=== PATIENT | female | born 1960 | race Caucasian/White ===

== ENCOUNTER 2017-10-08 07:47 | Emergency (ER) | payer OTHER, SELFPAY ==
--- NOTE | 2017-10-08 07:55 | ED_ITS ---
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 Patient does wear corrective glasses. No contacts. No prior eye surgery such as Lasix. States she was sitting at a computer. Had been there for approximately 10 min. States she suddenly got an onset of white light flashes in her right eye. She describes them an a ring. Sometime after the start of the symptoms she did develop a headache. Since she was at work she had 1 of her coworkers take her blood pressure and had a systolic blood pressure of greater than 200. Patient does not have a history of high blood pressure. Because of the symptoms in the high blood pressure she came to the emergency department for evaluation. She denies any trauma. At the time of my evaluation patient did report a improvement in her symptoms. Related Data Home Medications Medication Instructions Recorded Confirmed calcium carbonate 1 tab PO #0 tab 01/05/16 Allergies Allergy/AdvReac Type Severity Reaction Status Date / Time No Known Drug Allergies Allergy Verified 10/08/17 08:08 Review of Systems Constitutional Denies chills, Denies fatigue, Denies fever(s), Reports headache(s), Denies lethargy and Denies night sweats Eyes Reports blurry vision ( Right eye), Reports change in vision ( right eye), Denies diplopia, Denies eye discharge, Denies irritation, Denies itchy eyes, Denies loss of peripheral vision, Denies loss of vision, Denies eye pain, Reports seeing flashes ( right eye), Denies photophobia, Denies spots in vision and Denies tunnel vision Comments: patient without left eye complaints ENT Ears, Nose, Mouth, and Throat: Denies vertigo, Denies dizziness, Reports headache(s), Denies nose pain, Denies tinnitus, Denies sinus pain, Denies sinus pressure and Denies sore throat Cardiovascular Denies chest pain, Denies syncope, Denies palpitations and Denies dyspnea Respiratory Denies cough and Denies dyspnea Gastrointestinal Gastrointestinal: Denies vomiting Musculoskeletal Denies numbness Integumentary/Breasts Denies lesions, Denies rash and Denies wounds Neurologic Denies abnormal speech, Denies confusion, Denies vertigo, Denies dizziness, Denies syncope, Reports headache(s), Denies focal weakness, Denies loss of vision, Denies numbness, Denies radicular pain, Denies sensory deficit and Denies paresthesias Psychiatric Denies confusion Endocrine Denies fatigue and Denies palpitations Hematologic/Lymphatic Denies easy bleeding and Denies easy bruising Allergic/Immunologic Denies itchy eyes PFS Surgical History Status post delivery Status post discectomy Family History Father Age: 89 Macular degeneration Hypertension Exam Initial Vital Signs Initial Vital Signs: Vital Signs Temperature 97.6 F 10/08/17 07:57 Pulse Rate 88 10/08/17 07:57 Respiratory Rate 13 10/08/17 07:57 Blood Pressure 168/98 H 10/08/17 07:57 Pulse Oximetry 100 10/08/17 07:57 Const General: cooperative, healthy appearing, comfortable, well developed, well groomed and No acute distress Nutritional Appearance: average body habitus Orientation: alert, awake and oriented x3 HENMT Head: normal to inspection, normocephalic and atraumatic Ears: hearing grossly normal bilaterally and TM's normal bilaterally Nose: external nose normal Face and sinus: normal facial exam, sinuses nontender and face symmetric Mouth: oral mucosae normal and moist mucous membranes Eyes General: appearance normal, both eyes and all related structures Alignment and Position: alignment normal Periorbital: periorbital findings normal Eyelids: eyelids normal Conjunctivae: conjunctivae normal Sclera: sclerae normal Pupils: PERRL EOM: EOM intact bilaterally Direct ophthalmoscopy: normal light reflex, no papilledema and increased light reflex Other: interocular pressure right eye 18 interocular pressure left eye 18 Neck Neck: normal visual inspection Lymphatic: No lymphadenopathy Resp Effort & Inspection: normal respiratory effort and able to speak in complete sentences Skin Lesions: no lesions Rashes: no rashes Neuro General: alert, awake and oriented x3 Cranial Nerves: CN's II-XI intact bilaterally, PERRL and EOM intact bilaterally Cognition: normal cognition Speech: speech normal Gait: normal gait Sensory Exam: no sensory deficits noted Extrem General: normal to inspection and capillary refill normal Course Orders Ordered: ED Orders 10/08/17 08:11 Urine Microscopic Stat Tetracaine HCl (Pontocaine 0.5% Ophth) 1 drops EYE-RIGHT Q5MIN PRN PRN Reason: Pain, Mild (1-3) Vital Signs - 8 hr 10/08/17 07:57 10/08/17 08:00 Temperature 97.6 F Pulse Rate 88 91 H Respiratory Rate 13 22 Blood Pressure 168/98 H Blood Pressure [Left Wrist] 166/97 H Pulse Oximetry 100 100 MDM - Eye Problem MDM Narrative Medical decision making narrative: patient's blood pressure has been improving here in the emergency department however still has a systolic in the 150s. She does report improvement of her symptoms except for a blurry vision in right eye. visual QT was noted. Interocular pressures unremarkable. Nondilated direct ophthalmoscope with the panoptic shows normal right side optic disc. Bedside ultrasound is concerning for a vitreous detachment. Unable to attach photos for this. I discussed the case with Dr. Walter at [facility] which is where the patient receives her eye care. Dr. Walter agrees with her history and physical exam which I described to him as most likely a vitreous detachment. Headaches and high blood pressure normally not associated with vitreous detachment. Her high blood pressure could be the result of her headache and other extremity was circumstances. Her physical exam is not consistent with a CVA or TIA. She has a normal neurologic exam. We did discuss this with the patient. Dr. Walter office will call the patient for a follow-up the next couple days. Patient was informed of return precautions. She expressed understanding and agreement with plan. Discharge Plan Departure Patient Disposition: Home, Self-Care Clinical Impression: Blurred vision, right eye, Hypertension, Posterior vitreous detachment of right eye, Headache Instructions: DI for Vitreous Detachment Activity Restrictions/Additional Instructions: you should be receiving a call from the [facility] office and Dr. Walter in the next day to schedule a follow-up. If your symptoms worsen, change or if you developed new symptoms you can return to the emergency department for further evaluation. I would continue to monitor your blood pressure like we discussed. If it continues to be elevated you do need to be re -evaluated by her primary doctor. Prescriptions: No Action calcium carbonate 500 MG tablet 1 tab PO Qty: 0 RF: 0
[2017-10-08 07:57] VITALS: BP 168/98; PULSE 88; RESP 13; TEMP 36.4; O2SAT 100
[2017-10-08 08:00] VITALS: BP 166/97; PULSE 91; RESP 22; O2SAT 100
== END 2017-10-08 09:12 | disposition home or self-care (01) ==
LOC: ED 09:10
PROVIDERS: Emergency Provider Emergency Medicine; PCP Specialist
DX: H43.811 Vitreous degeneration, right eye (principal); H53.8 Other visual disturbances; I10 Essential (primary) hypertension; R51 Headache
CPT/HCPCS: 81003; 99283

== ENCOUNTER 2018-01-05 11:16 | Emergency (ER) | payer OTHER, SELFPAY ==
[2018-01-05] VITALS (9 sets, daily range): BP systolic 124–168; BP diastolic 69–93; PULSE 64–91; RESP 13–20; TEMP 36.5; O2SAT 98–100; BMI 24.0
--- NOTE | 2018-01-05 11:21 | DI.RAD.S_ITS ---
PROCEDURE: XR CHEST 1V INDICATIONS: chest pain TECHNIQUE: One view of the chest was acquired. COMPARISON: None. FINDINGS: Surgical changes and devices: Cervical spine fixation hardware Lungs and pleura: No pleural effusions or pneumothorax. Lungs are clear. Mediastinum: Mediastinal contours appear normal. Heart size is normal. Bones and chest wall: Left lateral curvature of the spine No suspicious bony lesions. Overlying soft tissues appear unremarkable. IMPRESSION: No acute disease. Dictated by: Mike Lyn M.D. on 01/05/2018 at 11:59 Approved by: Mike Lyn M.D. on 01/05/2018 at 12:00
[2018-01-05] MEDS: NITROGLYCERIN 0.4 MG SL TAB SL ×3 (11:37→11:55)
--- NOTE | 2018-01-05 11:39 | ED.CHESTPAIN ---
HPI - Chest Pain General Chief Complaint: Chest Pain Stated Complaint: CHEST PAIN Time Seen by Provider: 01/05/18 11:30 Source: patient Mode of arrival: ambulatory Limitations: no limitations History of Present Illness HPI narrative: Patient is a 57-year-old female presents with chest discomfort. She says she has been having some discomfort off and on for about a week all which is all worse with exertion. Over the last day or so a is significantly worse radiating up to her right jaw. She thought it was just heartburn. She has been taking Tums no relief. No prior history or of coronary artery disease hypertension or hyperlipidemia. She does smoke a half pack daily. No known family history. She does have a history of PVCs which she does currently have on the monitor she denies dizziness or heart palpitations. She also has a history of a bundle-branch block. MD complaint: chest pain Related Data Home Medications Medication Instructions Recorded Confirmed calcium carbonate 1 tab PO #0 tab 01/05/16 Allergies Allergy/AdvReac Type Severity Reaction Status Date / Time No Known Drug Allergies Allergy Verified 10/08/17 08:08 Review of Systems Review of Systems GENERAL: Denies chills, fatigue, malaise, fever, sweats, travel HEENT: Denies sinus pain, ear pain, sore throat, difficulty swallowing, neck pain RESPIRATORY: Denies dyspnea, cough, wheezing, hemoptysis, sputum. CARDIOVASCULAR: See HPI GASTROINTESTINAL: Denies nausea, vomiting, abdominal pain, diarrhea, constipation, melena. : Denies dysuria, frequency, incontinence, hematuria, urinary retention, flank pain. MUSCULOSKELETAL: Denies weakness, joint pain, or bony pain SKIN: No rash, no erythema, no pruritus NEUROLOGIC: Denies weakness, dizziness, headache, numbness, change in speech, confusion PSYCHIATRIC: No concerning psychosocial issues. 12 point review of systems is negative except for those stated above and HPI ON LICENSE OF [facility] Social History Smoking Status: Current every day smoker Exam Initial Vital Signs Initial Vital Signs: Vital Signs Temperature 97.7 F 01/05/18 11:22 Pulse Rate 91 H 01/05/18 11:22 Respiratory Rate 20 01/05/18 11:22 Blood Pressure 157/69 H 01/05/18 11:22 Pulse Oximetry 100 01/05/18 11:22 GENERAL: Well-appearing, well-nourished and in no acute distress. HEENT: Head atraumatic,EOMI, pupils reactive, face symmetric, CARDIOVASCULAR: Regular rate and rhythm without murmurs, rubs or gallops. RESPIRATORY: Breath sounds equal bilaterally, no wheezes rales or rhonchi. ABDOMEN: Soft, nontender. Normoactive bowel sounds all 4 quadrants. No guarding or rebound. EXTREMITIES: Normal range of motion, no clubbing or edema. Neurovascularly intact NEUROLOGICAL: Alert and oriented x4.Normal gait and speech. Cranial nerves II through XII grossly intact. SKIN: Warm, dry, no laceration, no petechiae, no rashes or lesions. Scores HEART Score Heart Score history: Highly Suspicious Heart Score EKG: Normal Heart Score Age: 45-64 years old Heart Score risk factors: 1-2 risk factors Heart Score troponin: < or = to normal limit Heart Score Total: 4 Course Orders Ordered: ED Orders 01/05/18 11:21 XR chest 1V Stat EKG-12 Lead Stat 01/05/18 11:35 Complete Blood Count AUTO DIFF Stat Comprehensive Metabolic Panel Stat Lipase Stat Partial Thromboplastin Time Stat Prothrombin Time INR Stat Troponin & CK Cardiac Panel Stat 01/05/18 11:37 EKG-12 Lead Stat Discontinued Medications Aspirin (Aspirin Chew) 243 mg PO NOW ONE Stop: 01/05/18 11:38 Last Admin: 01/05/18 11:43 Dose: 243 mg Nitroglycerin (Nitrostat) 0.4 mg SL NOW ONE Stop: 01/05/18 11:38 Last Admin: 01/05/18 11:37 Dose: 0.4 mg Nitroglycerin (Nitrostat) 0.4 mg SL NOW ONE Stop: 01/05/18 11:48 Last Admin: 01/05/18 11:50 Dose: 0.4 mg Nitroglycerin (Nitrostat) 0.4 mg SL NOW ONE Stop: 01/05/18 11:55 Last Admin: 01/05/18 11:55 Dose: 0.4 mg Pantoprazole Sodium (Protonix) 40 mg IV NOW ONE Stop: 01/05/18 11:38 Last Admin: 01/05/18 11:53 Dose: 40 mg Vital Signs - 8 hr 01/05/18 11:22 01/05/18 11:37 09/29/18 11:45 Temperature 97.7 F Pulse Rate 91 H 78 79 Respiratory Rate 20 Blood Pressure 157/69 H 168/82 H 147/93 H Blood Pressure [Left Arm] Pulse Oximetry 100 01/05/18 11:50 01/05/18 11:55 01/05/18 12:00 Temperature Pulse Rate 78 82 77 Respiratory Rate 13 Blood Pressure 136/82 138/88 Blood Pressure [Left Arm] 134/88 Pulse Oximetry 99 01/05/18 12:30 01/05/18 13:30 Temperature Pulse Rate 77 64 Respiratory Rate 18 19 Blood Pressure Blood Pressure [Left Arm] 124/72 133/71 Pulse Oximetry 100 99 MDM - Chest Pain Lab Data Attestation: I reviewed the patient's lab results. Result diagrams: 01/05/18 11:35 01/05/18 11:35 Lab Results 01/05/18 01/05/18 01/05/18 Range/Units 11:35 11:35 11:35 WBC 8.2 (4.5-11.0) X10^3/uL RBC 4.32 (4.0-5.2) X10^6/uL Hgb 13.3 (12.0-16.0) g/dL Hct 39.0 (36-46) % MCV 90.3 (80-100) fL MCH 30.7 (26-34) PG MCHC 34.1 (30-36) % RDW 13.5 (11.6-14.8) % Plt Count 243 (150-400) X10^3/uL Neut % (Auto) 62.6 (50-75) % Lymph % (Auto) 27.6 (25-40) % [place] % (Auto) 7.8 (3-14) % Eos % (Auto) 1.4 L (2-4) % Baso % (Auto) 0.6 (0-2) % Neut # (Auto) 5100 (8768-7606) /uL PT 10.8 (10.1-12.7) SECONDS INR 1.0 (0.9-1.3) APTT 31 (26.4-36.2) SECONDS Sodium 145 (137-145) mmol/L Potassium 3.9 (3.4-5.1) mmol/L Chloride 104 (98-107) mmol/L Carbon Dioxide 31 (22-32) mmol/L BUN 19 H (7-17) mg/dL Creatinine 0.80 (0.52-1.04) mg/dL Estimated GFR > 60.0 (>60) mL/min BUN/Creatinine Ratio 23.8 H (6-22) Glucose 105 H (70-100) mg/dL Calcium 9.9 (8.4-10.2) mg/dL Total Bilirubin 0.5 (0.2-1.3) mg/dL AST 29 (14-36) IU/L ALT 32 (9-52) IU/L Alkaline Phosphatase 73 (38-126) U/L Total Creatine Kinase 50 (30-135) U/L CK-MB (CK-2) TNP CK-MB (CK-2) Rel Index TNP Troponin I < 0.012 (0.01-0.034) ng/mL Total Protein 7.3 (6.3-8.2) g/dL Albumin 4.4 (3.5-5.0) g/dL Globulin 2.9 (1.7-4.1) g/dL Albumin/Globulin Ratio 1.5 (1.0-2.8) Lipase 256 (23-300) U/L Imaging Data Chest x-ray: Radiologist's impression: PROCEDURE: XR CHEST 1V INDICATIONS: chest pain TECHNIQUE: One view of the chest was acquired. COMPARISON: None. FINDINGS: Surgical changes and devices: Cervical spine fixation hardware Lungs and pleura: No pleural effusions or pneumothorax. Lungs are clear. Mediastinum: Mediastinal contours appear normal. Heart size is normal. Bones and chest wall: Left lateral curvature of the spine No suspicious bony lesions. Overlying soft tissues appear unremarkable. IMPRESSION: No acute disease. Dictated by: Mike Lyn M.D. on 01/05/2018 at 11:59 ECG Data Attestation: I personally reviewed and interpreted this ECG as follows: Prior ECG tracings: not available for review Interpretation: EKG 1. Sinus some left bundle-branch block no ST changes no prior EKG 2. Sinus rhythm a left bundle-branch block rate 87 PVCs similar to prior EKG 3. Sinus rhythm is rate 72 similar to previous her MDM Narrative Medical decision making narrative: Patient symptoms are actually highly suspicious. She had complete resolution after nitro she is not relate some much pressure she was having on her chest. EKGs do show a left bundle branch block and PVCs both of which she has history 4. Troponin is negative. Unfortunately [facility] does not have stress testing available for couple of weeks. Patient is a [place] patient. Dr Rene, has been updated patient's symptoms and test results agrees with transfer to [place]. Discharge Plan Departure Patient Disposition: [facility] Clinical Impression: Chest pain Prescriptions: No Action calcium carbonate 500 MG tablet 1 tab PO Qty: 0 RF: 0
[2018-01-05] MEDS: ASPIRIN 81 MG TAB 243 MG PO (11:43)
[2018-01-05 11:47] LABS: Add Manual Diff / Slide Review NO; Basophils Percent Auto 0.6 % (0-2); Eosinophils Percent Auto 1.4 % (2-4); Hemoglobin 13.3 g/dL (12.0-16.0); Lymphocytes Percent Auto 27.6 % (25-40); Mean Corpuscular HGB Conc 34.1 % (30-36); Mean Corpuscular Hemoglobin 30.7 PG (26-34); Mean Corpuscular Volume 90.3 fL (80-100); Monocytes Percent Auto 7.8 % (3-14); Neutrophils Absolute Auto 5100 /uL (3000-5900); Neutrophils Percent Auto 62.6 % (50-75); Platelet Count 243 X10^3/uL (150-400); Red Blood Cell Count 4.32 X10^6/uL (4.0-5.2); Red Cell Distribution Width 13.5 % (11.6-14.8); White Blood Cell Count 8.2 X10^3/uL (4.5-11.0)
[2018-01-05] MEDS: PANTOPRAZOLE 40 MG VIAL IV (11:53)
[2018-01-05 11:55] LABS: Prothrombin Time 10.8 SECONDS (10.1-12.7)
[2018-01-05 11:58] LABS: Alanine Aminotransferase 32 IU/L (9-52); Albumin 4.4 g/dL (3.5-5.0); Albumin Globulin Ratio 1.5 (1.0-2.8); Alkaline Phosphatase 73 U/L (38-126); Aspartate Aminotransferase 29 IU/L (14-36); BUN Creatinine Ratio 23.8 (6-22); Bilirubin Total 0.5 mg/dL (0.2-1.3); Blood Urea Nitrogen 19 mg/dL (7-17); Calcium 9.9 mg/dL (8.4-10.2); Carbon Dioxide 31 mmol/L (22-32); Chloride 104 mmol/L (98-107); Creatine Kinase 50 U/L (30-135); Estimated Glomerular Filt Rate > 60.0 mL/min (>60); Globulin 2.9 g/dL (1.7-4.1); Glucose 105 mg/dL (70-100); HEMOLYSIS < 15 (0-50); Lipase 256 U/L (23-300); PTT Partial Thromboplastin Tim 31 SECONDS (26.4-36.2); Potassium 3.9 mmol/L (3.4-5.1); Sodium 145 mmol/L (137-145); Total Protein 7.3 g/dL (6.3-8.2)
[2018-01-05 12:10] LABS: Troponin I < 0.012 ng/mL (0.01-0.034)
== END 2018-01-05 14:39 | disposition short-term general hospital (02) ==
PROVIDERS: Emergency Provider Emergency Medicine; PCP Specialist
DX: R07.9 Chest pain, unspecified (principal)
CPT/HCPCS: 36591; 71045; 80053; 82550; 83690; 84484; 85025; 85610; 85730; 93005; 93041; 96374; 99283; 99285; C9113

== ENCOUNTER → 2018-02-06 15:00 | Outpatient (CLI) | payer OTHER, SELFPAY | PROVIDERS: PCP Specialist | DX: Z23 Encounter for immunization (principal) | CPT/HCPCS: 90471; 90686 ==

== ENCOUNTER → 2018-05-07 14:45 | Outpatient (CLI) | payer OTHER, SELFPAY ==
--- NOTE | 2018-05-07 | DI.ECHO.S_ITS ---
[facility] +---------+ Hospital +---------+ : : [address] : : : : [id number] : : : : Phone: [phone] Echocardiogram Report + + :Name: JESSA IRAHETA Study Date: 05/07/2018 Height: 64 in : :[employer] Exam Location: IS Weight: 150 lb : : Gender: Female BSA: 1.7 m2 : :: 1960 Age: 57 yrs BP: 132/80 mmHg: :Reason For Study: Hypertension : :Ordering Physician: Dr. Marie : :Jake Performed By: Danielle Bates : :Referring: RUSS MARTINEZ : + + Interpretation Summary The left ventricle is normal in size. Left ventricular systolic function is borderline reduced. Left ventricular ejection fraction is estimated to be 50%. Left ventricular wall motion is normal. Diastolic parameters suggest a relaxation abnormality of the left ventricle, consistent with probable normal filling pressures. The right ventricle is normal in size and function. The right ventricular systolic pressure is estimated to be at least 20 mmHg based on an estimated right atrial pressure of 3 mm Hg. Both atria are normal in size. There is mild mitral regurgitation. There is no significant valvular heart disease. The aortic root is normal size. Procedure: A two-dimensional transthoracic echocardiogram with color flow and Doppler was performed. The study quality was technically adequate. There is no prior echocardiogram noted for this patient. The patient was in normal sinus rhythm during the exam. The patient had occasional PVCs during the exam. Left Ventricle: The left ventricle is normal in size. There is normal left ventricular wall thickness. Left ventricular systolic function is borderline reduced. Left ventricular ejection fraction is estimated to be 50%. Left ventricular wall motion is normal. Diastolic parameters suggest a relaxation abnormality of the left ventricle, consistent with probable normal filling pressures. Right Ventricle: The right ventricle is normal in size and function. Atria: Both atria are normal in size. Mitral Valve: The mitral valve leaflets appear mildly thickened, but open well. There is mild mitral regurgitation. The mitral regurgitant jet is eccentrically directed. Aortic Valve: The aortic valve is trileaflet. The aortic valve opens well. No aortic regurgitation is present. Tricuspid Valve: The tricuspid valve is normal in structure and function. There is trace tricuspid regurgitation. The right ventricular systolic pressure is estimated to be at least 20 mmHg based on an estimated right atrial pressure of 3 mm Hg. Pulmonic Valve: The pulmonic valve is normal in structure and function. There is a trace or physiologic amount of pulmonic regurgitation. There is no significant valvular heart disease. Great Vessels: The aortic root is normal size. The ascending aorta is normal in size. The IVC is of normal diameter and collapses greater than 50% with a sniff. This suggests a low right atrial pressure of 3 mm Hg. Pericardium/ Pleura There is no pericardial effusion. There is no pleural effusion. MMode/2D Measurements & Calculations LVIDd: 4.8 cm LVOT diam: 1.9 cm LVIDs: 3.6 cm Ao root diam: 3.3 cm FS: 25.1 % asc Aorta Diam: 3.5 cm IVSd: 0.95 cm Ao Arch Diam (Prox Trans): 2.3 cm LVPWd: 1.1 cm LV pak. diameter/BSA (cm/m^2): 2.8 LV sys. diameter/BSA (cm/m^2): 2.1 LA A2 area: 17.2 cm2 RA long axis: 3.8 cm LA A4 area: 12.8 cm2 RA area: 11.6 cm2 LA length (vol): 4.5 cm RA vol: 30.1 ml LA vol: 41.5 ml RA : 17.4 ml/m2 LA vol index: 24.0 ml/m2 TAPSE: 2.0 cm Doppler Measurements & Calculations Ao V2 max: 166.2 cm/sec LVOT Max Domenic: 85.7 cm/sec Ao V2 mean: 107.8 cm/sec LV V1 max P.9 mmHg Ao max P.0 mmHg LV V1 VTI: 16.1 cm Ao mean P.3 mmHg KATHY(I,D): 1.4 cm2 Ao V2 VTI: 31.1 cm KATHY(V,D): 1.4 cm2 sev ratio: 0.52 KATHY indexed to BSA (cm^2/m^2): 0.82 MV E max domenic: 75.7 cm/sec TR max domenic: 206.2 cm/sec MV A max domenic: 86.8 cm/sec TR max P.0 mmHg MV E/A: 0.87 Med Peak E' Domenic: 5.6 cm/sec E/E' med: 13.6 Lat Peak E' Domenic: 8.0 cm/sec E/E' lat: 9.5 E/e' average: 11.5 MV dec time: 0.18 sec SV([facility]): 43.9 ml Reading Physician:05:41 PM
== END ==
PROVIDERS: Family Provider Specialist; PCP Family Medicine; Visit Provider Family Medicine
DX: I34.0 Nonrheumatic mitral (valve) insufficiency (principal); I10 Essential (primary) hypertension
CPT/HCPCS: 93306

== ENCOUNTER → 2018-05-17 09:36 | Outpatient (CLI) | payer OTHER, SELFPAY ==
--- NOTE | 2018-05-17 | DI.MG.S_ITS ---
BILATERAL DIGITAL SCREENING MAMMOGRAM 3D/2D WITH CAD: 05/17/2018 CLINICAL: Routine screening. Comparison is made to exams dated: 05/08/2017 mammogram, 04/19/2016 mammogram, and 01/12/2015 mammogram - [facility]. The tissue of both breasts is heterogeneously dense. This may lower the sensitivity of mammography. Current study was also evaluated with a Computer Aided Detection (CAD) system. No significant masses, calcifications, or other findings are seen in either breast. There has been no significant interval change. IMPRESSION: NEGATIVE There is no mammographic evidence of malignancy. A 1 year screening mammogram is recommended. This exam was interpreted at Station ID: [id number]. NOTE: For mammograms, a report in lay terms will be sent to the patient. Approximately 15% of breast malignancies will not be visualized mammographically. In the management of a palpable breast mass, a negative mammogram must not discourage biopsy of a clinically suspicious lesion. Electronically Signed By: Raymon perry/hieu:05/17/2018 11:12:26 copy to: Annia Funes letter sent: Normal Exam ACR BI-RADS Category 1: Negative [id number]
== END ==
PROVIDERS: Family Provider Specialist; PCP Family Medicine; Visit Provider Family Medicine
DX: Z12.31 Encounter for screening mammogram for malignant neoplasm of breast (principal)
CPT/HCPCS: 77063; 77067

== ENCOUNTER → 2019-01-09 10:05 | Outpatient (CLI) | payer OTHER, SELFPAY | PROVIDERS: PCP Family Medicine | DX: Z23 Encounter for immunization (principal) | CPT/HCPCS: 90471; 90686 ==

== ENCOUNTER 2019-05-08 10:28 | Emergency (ER) | payer OTHER, SELFPAY ==
[2019-05-08] VITALS (7 sets, daily range): BP systolic 151–220; BP diastolic 73–97; PULSE 68–88; RESP 16–20; TEMP 37.2; O2SAT 96–99; BMI 26.1
--- NOTE | 2019-05-08 10:47 | ED_ITS ---
HPI - Chest Pain General Chief Complaint: Chest Pain Stated Complaint: all sweaty dizzy nausea heart all over the place Time Seen by Provider: 05/08/19 10:46 History of Present Illness HPI narrative: CC: Dizziness and diaphoresis HPI: The patient is a 58-year-old female who just finished a 2 week course with either an event monitor or Holter monitor. It was removed yesterday. She sta berhane that during that time. She did not have any documented episodes of bigeminy. 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 Her heart rate on the monitor showed a bigeminy and ventricular rate ranging from 34-88. She states that she ?felt bad? she did not feel as though she was going to pass out. She had mild headache, no chest pain, no significant shortness of breath, no cough. She just felt warm suddenly sweaty and clammy. She states that last week she had fever and chills with a sore throat. She denies any significant nausea vomiting diarrhea melena, hematochezia or any urinary symptoms. The patient states that she drank 2 beers last night. He admits to a known history of mitral valve prolapse history of left bundle branch block and bigeminy. Related Data Home Medications Medication Instructions Recorded Confirmed calcium carbonate 1 tab PO DAILY #0 tab 01/05/16 05/08/19 losartan 50 mg PO BEDTIME 05/08/19 05/08/19 metoprolol succinate 12.5 mg PO DAILY 05/08/19 05/08/19 trazodone 25 mg PO BEDTIME 05/08/19 05/08/19 Previous Rx's Medication Instructions Recorded ondansetron HCl [Zofran] 4 mg PO Q6H PRN #10 tab 05/08/19 Allergies Allergy/AdvReac Type Severity Reaction Status Date / Time No Known Drug Allergies Allergy Verified 05/08/19 10:52 Review of Systems Review of Systems ROS Unobtainable: All systems reviewed & are unremarkable except as noted in HPI and below Patient History Surgical History Status post delivery Status post discectomy Family History Father Age: 91 Macular degeneration Hypertension Social History Smoking Status: Current every day smoker Smoking Status: Current every day smoker alcohol intake frequency: 0-2 drinks per day Substance Use Type: does not use Exam Narrative Exam Narrative: PHYSICAL EXAM: CONSTITUTIONAL: Awake, Alert, Oriented, Coherent, Cooperative in NAD. Does not appear toxic or ill. She is very cooperative and talkative. HEAD: AT/NC EENT: PERRL, FROM of eyes, no discharge, no nystagmus, no icterus. Oral mucosa is moist and pink, posterior pharynx is without erythema or exudate. NECK: Supple, no obvious JVD, Trachea is midline without stridor, no palpable LN or masses. SPINE: No gross deformity, no palpable tenderness of the cervical, thoracic, lumbar or sacral spine. No CVA tenderness. THORAX: No deformity, retractions, chest wall tenderness, subcutaneous air or crepitice. LUNGS: Clear with symmetrical breath sounds without respiratory distress HEART: The patient has a regular irregular rhythm that sounds bigeminal in nature with a systolic heart murmur that is heard both in the 2nd right intercostal space and left axilla. Radial pulses are 2+. ABDOMEN: Soft, and minimally tender in the far left upper quadrant without any guarding rebound or rigidity.. EXTREMITIES: No edema, cyanosis, deformity or tenderness. SKIN: No rash, bruising, petechiae or purpura. NEURO: Awake, alert, oriented, conversive, cranial nerves II-XII are symmetrical and normal, moves all 4 extremities and is ambulatory Initial Vital Signs Initial Vital Signs: Vital Signs Temperature 99.0 F 05/08/19 10:45 Pulse Rate 88 05/08/19 10:45 Respiratory Rate 18 05/08/19 10:45 Blood Pressure 220/94 H 05/08/19 10:45 Pulse Oximetry 99 05/08/19 10:45 Course Course Course Narrative: The patient's course was surprising when her lipase returned at 8:30 a.m.. An ultrasound of her gallbladder was obtained which was negative for gallstones or acute cholecystitis. The etiology of the patient's pancreatitis remains unknown. The patient was informed that this may be secondary to ingestion of alcohol medications, or recent infection or idi opathic. She was informed that I believe this was the cause of her dizziness diaphoresis and feeling ill. She was discharged home under current medications placed on bowel rest by taking clear liquid diet and advancing her diet as tolerated. Warm is eating she stimulates the pancreas to function may make her pancreatitis worse. She was advised that if she develops worsening pain and discomfort, intolerable pain and discomfort, dizziness, passing out, fever, she needs to be re-evaluated and proceed to the nearest emergency department. Orders Ordered: Discontinued Medications Sodium Chloride (Normal Saline 0.9%) 1,000 mls @ 150 mls/hr IV CONT JUANA Last Infusion: 05/08/19 14:55 Dose: 0 mls/hr Documented by: Admin: 05/08/19 11:42 Dose: 150 mls/hr Documented by: GUALBERTO MDM - Chest Pain Lab Data Attestation: I reviewed the patient's lab results. Result diagrams: 05/08/19 10:34 05/08/19 10:34 Labs: Lab Results 05/08/19 05/08/19 05/08/19 Range/Units 10:34 10:34 10:34 WBC 7.6 (4.5-11.0) X10^3/uL RBC 4.31 (4.0-5.2) X10^6/uL Hgb 13.4 (12.0-16.0) g/dL Hct 39.4 (36-46) % MCV 91.4 (80-100) fL MCH 31.0 (26-34) PG MCHC 33.9 (30-36) % RDW 13.6 (11.6-14.8) % Plt Count 260 (150-400) X10^3/uL Neut % (Auto) 59.9 (50-75) % Lymph % (Auto) 24.4 L (25-40) % [place] % (Auto) 7.2 (3-14) % Eos % (Auto) 7.9 H (2-4) % Baso % (Auto) 0.6 (0-2) % Neut # (Auto) 4600 (1923-2547) /uL Lymph # (Auto) 1900 (9301-5847) /uL [place] # (Auto) 500 (0-900) /uL Eos # (Auto) 600 H (0-450) /uL Baso # (Auto) 0 (0-100) /uL PT 10.8 (10.1-12.7) SECONDS INR 0.9 (0.9-1.3) APTT 31 (26.4-36.2) SECONDS Sodium 138 (137-145) mmol/L Potassium 4.4 (3.4-5.1) mmol/L Chloride 100 (98-107) mmol/L Carbon Dioxide 28 (22-32) mmol/L BUN 15 (7-17) mg/dL Creatinine 0.80 (0.52-1.04) mg/dL Estimated GFR > 60.0 (>60) mL/min BUN/Creatinine Ratio 18.8 (6-22) Glucose 116 H (70-100) mg/dL Calcium 9.6 (8.4-10.2) mg/dL Total Bilirubin 0.5 (0.2-1.3) mg/dL AST 37 H (14-36) IU/L ALT 24 (<35) IU/L Alkaline Phosphatase 111 (38-126) U/L Total Creatine Kinase 53 (30-135) U/L CK-MB (CK-2) TNP CK-MB (CK-2) Rel Index TNP Troponin I < 0.012 (0.01-0.034) ng/mL Total Protein 8.1 (6.3-8.2) g/dL Albumin 4.7 (3.5-5.0) g/dL Globulin 3.4 (1.7-4.1) g/dL Albumin/Globulin Ratio 1.4 (1.0-2.8) Lipase 830 H (23-300) U/L ECG Data Attestation: I personally reviewed and interpreted this ECG as follows: Interpretation: The patient's EKG revealed a bigeminal rhythm with PVCs and an underlying left bundle branch block. There were no Sgarboza criteria Discharge Plan Departure Patient Disposition: Home Clinical Impression: Dizziness, Bigeminy Acute pancreatitis Qualifiers: Pancreatitis type: unspecified pancreatitis type Acute pancreatitis complica tion: unspecified Qualified Code(s): K85.90 - Acute pancreatitis without necrosis or infection, unspecified Discharge Date/Time: 05/08/19 14:57 Instructions: DI for Pancreatitis, DI for Arrhythmias, DI for Dizziness- Nonvertigo Activity Restrictions/Additional Instructions: Continue your current medications. 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 If you developed upper abdominal pain with back pain worsening dizziness lightheadedness passing out you need to return to the emergency department. You need to start off with a clear liquid diet for the next 12-36 hours and advance your diet as tolerated. When you eat you stimulate her pancreas to work and the pancreatitis could get worse. If you developed fever chills with this and worsening pain or discomfort or persistent nausea vomiting such it is are unable to keep anything down you need to return to the emergency department otherwise follow up with your primary care physician. At this time since you are not having any pain or discomfort I have not prescribed any pain medication. However if you develop nausea with with minor vomiting take the Zofran as directed. You will be given a work excuse for today to rest your pancreas. Prescriptions: New ondansetron HCl [Zofran] 4 mg tablet 4 mg PO Q6H PRN (Reason: nausea and vomiting) Qty: 10 RF: 0 No Action calcium carbonate 500 MG tablet 1 tab PO DAILY Qty: 0 RF: 0 losartan 50 mg Tablet 50 mg PO BEDTIME RF: 0 trazodone 50 mg Tablet 25 mg PO BEDTIME RF: 0 metoprolol succinate 25 mg Tablet Extended Release 24 Hr 12.5 mg PO DAILY RF: 0 Referrals: Cynthia Joseph [Other]
--- NOTE | 2019-05-08 10:48 | DI.RAD.S_ITS ---
PROCEDURE: XR CHEST 1V INDICATIONS: chest pain TECHNIQUE: One view of the chest was acquired. COMPARISON: [facility], , XR CHEST 1V, 01/05/2018, 11:25. FINDINGS: Surgical changes and devices: Partially imaged surgical hardware from lower anterior cervical fusion. Lungs and pleura: Lungs are clear. No pleural effusions or pneumothorax. Mediastinum: Mediastinal contours appear normal. Heart size is normal. Bones and chest wall: No suspicious bony lesions. Overlying soft tissues appear unremarkable. IMPRESSION: Stable radiographic evaluation of the chest without acute cardiopulmonary abnormalities or focal airspace disease. Dictated by: Clarke Lester M.D. on 05/08/2019 at 11:51 Approved by: Clarke Lester M.D. on 05/08/2019 at 11:52
[2019-05-08 10:56] LABS: Add Manual Diff / Slide Review NO; Basophils Absolute Auto 0 /uL (0-100); Basophils Percent Auto 0.6 % (0-2); Eosinophils Absolute Auto 600 /uL (0-450); Eosinophils Percent Auto 7.9 % (2-4); Hematocrit 39.4 % (36-46); Hemoglobin 13.4 g/dL (12.0-16.0); Lymphocytes Absolute Auto 1900 /uL (1100-4500); Lymphocytes Percent Auto 24.4 % (25-40); Mean Corpuscular HGB Conc 33.9 % (30-36); Mean Corpuscular Volume 91.4 fL (80-100); Monocytes Absolute Auto 500 /uL (0-900); Monocytes Percent Auto 7.2 % (3-14); Neutrophils Absolute Auto 4600 /uL (1500-7000); Neutrophils Percent Auto 59.9 % (50-75); Platelet Count 260 X10^3/uL (150-400); Red Blood Cell Count 4.31 X10^6/uL (4.0-5.2); Red Cell Distribution Width 13.6 % (11.6-14.8); White Blood Cell Count 7.6 X10^3/uL (4.5-11.0)
[2019-05-08 11:07] LABS: INR 0.9 (0.9-1.3); Prothrombin Time 10.8 SECONDS (10.1-12.7)
[2019-05-08 11:10] LABS: PTT Partial Thromboplastin Tim 31 SECONDS (26.4-36.2)
[2019-05-08 11:13] LABS: Alanine Aminotransferase 24 IU/L (<35); Albumin 4.7 g/dL (3.5-5.0); Albumin Globulin Ratio 1.4 (1.0-2.8); Alkaline Phosphatase 111 U/L (38-126); Aspartate Aminotransferase 37 IU/L (14-36); BUN Creatinine Ratio 18.8 (6-22); Bilirubin Total 0.5 mg/dL (0.2-1.3); Blood Urea Nitrogen 15 mg/dL (7-17); Calcium 9.6 mg/dL (8.4-10.2); Carbon Dioxide 28 mmol/L (22-32); Chloride 100 mmol/L (98-107); Creatine Kinase 53 U/L (30-135); Estimated Glomerular Filt Rate > 60.0 mL/min (>60); Globulin 3.4 g/dL (1.7-4.1); Glucose 116 mg/dL (70-100); HEMOLYSIS < 15 (0-50); Lipase 830 U/L (23-300); Potassium 4.4 mmol/L (3.4-5.1); Sodium 138 mmol/L (137-145); Total Protein 8.1 g/dL (6.3-8.2)
[2019-05-08 11:23] LABS: Troponin I < 0.012 ng/mL (0.01-0.034)
[2019-05-08] MEDS: SODIUM CHLORIDE 0.9% 1,000 ML 150 ML IV (11:42)
--- NOTE | 2019-05-08 13:50 | DI.US.S_ITS ---
PROCEDURE: US ABDOMEN LIMITED INDICATIONS: PANCREATITIS TECHNIQUE: Real-time focused scanning was performed of the abdomen, with image documentation. COMPARISON: None. FINDINGS: The liver is normal in size and echotexture. No focal liver lesions are identified. The gallbladder is within normal limits without cholelithiasis or evidence of gallbladder wall inflammation. There is no intrahepatic or extrahepatic biliary dilatation. The common bile duct measures 4 mm in diameter. The pancreas appears to be within normal limits. No free fluid is seen within the upper abdomen. The spleen is normal in size. The kidneys, abdominal aorta, and inferior vena cava were not imaged. IMPRESSION: 1. No cholelithiasis or evidence of acute cholecystitis. 2. No free fluid is seen within the upper abdomen. 3. The pancreas appears to be within normal limits. CT of the abdomen pelvis with intravenous contrast maybe helpful to better evaluate the pancreas, if indicated. Dictated by: Mckinley Mock M.D. on 05/08/2019 at 13:39 Approved by: Mckinley Mock M.D. on 05/08/2019 at 13:41
== END 2019-05-08 14:57 | disposition home or self-care (01) ==
PROVIDERS: Emergency Provider Emergency Medicine
DX: R42 Dizziness and giddiness (principal); R00.8 Other abnormalities of heart beat; K85.90 Acute pancreatitis without necrosis or infection, unspecified; R07.9 Chest pain, unspecified
CPT/HCPCS: 36415; 71045; 76705; 80053; 82550; 83690; 84484; 85025; 85610; 85730; 93005; 96360; 96361; 99284; 99285

== ENCOUNTER → 2019-05-27 10:38 | Outpatient (CLI) | payer OTHER, SELFPAY ==
--- NOTE | 2019-05-27 | DI.CT.S_ITS ---
PROCEDURE: CT LE RT WO CON INDICATIONS: Effusion, right ankle TECHNIQUE: Noncontrast 1-1.5 mm axial sections acquired from above the tibiotalar joint to the bottom of the calcaneus, with coronal and sagittal reformats. COMPARISON: [facility], CR, XR ANKLE RT MIN 3V, 05/27/2019, 10:39. FINDINGS: Image quality: Excellent. Bones: There is a diagonal fracture involving the lateral malleolus, minimally displaced, corresponding to the area of prior plain film concern at the inferior anterior lateral malleolus. Overlying soft tissue swelling is prominent immediately adjacent, with no additional injury. Soft tissues: No soft tissue hematoma found. No ligamentous disruption seen. IMPRESSION: Diurnal fracture through the lateral malleolus at its anterior inferior border, only slightly displaced. Adjacent soft tissue edema is present, as expected. No additional osseous injury is seen elsewhere. Dictated by: Iain Burroughs M.D. on 05/27/2019 at 13:22 Approved by: Iain Burroughs M.D. on 05/27/2019 at 13:27
--- NOTE | 2019-05-27 10:40 | DI.RAD.S_ITS ---
PROCEDURE: XR ANKLE RT MIN 3V INDICATIONS: Right ankle pain TECHNIQUE: 3 views of the ankle were acquired. COMPARISON: None. FINDINGS: Bones: There is a questionable fracture involving the lateral malleolus tip, best appreciated on the lateral view. Ankle mortise alignment is within normal limits. No suspicious osseous lesions are evident. Soft tissues: There is tibiotalar joint effusion. Prominent soft tissue swelling about the ankle is more prominent overlying the lateral malleolus. IMPRESSION: Probable lateral malleolar tip fracture. Please consider CT for confirmation. Dictated by: Mckinley Mock M.D. on 05/27/2019 at 9:52 Approved by: Mckinley Mock M.D. on 05/27/2019 at 9:54
== END ==
PROVIDERS: PCP Family Medicine; Referring Provider Physician Assistant; Visit Provider Physician Assistant
DX: M25.471 Effusion, right ankle (principal); M25.571 Pain in right ankle and joints of right foot
CPT/HCPCS: 73610; 73700; Q9967

== ENCOUNTER → 2019-06-25 09:33 | Outpatient (CLI) | payer OTHER, SELFPAY ==
--- NOTE | 2019-06-25 | DI.MG.S_ITS ---
BILATERAL DIGITAL SCREENING MAMMOGRAM 3D/2D WITH CAD: 06/25/2019 CLINICAL: Routine screening. Comparison is made to exams dated: 05/17/2018 mammogram, 05/08/2017 mammogram, and 04/19/2016 mammogram - [facility]. The tissue of both breasts is heterogeneously dense. This may lower the sensitivity of mammography. Current study was also evaluated with a Computer Aided Detection (CAD) system. No significant masses, calcifications, or other findings are seen in either breast. There has been no significant interval change. IMPRESSION: NEGATIVE There is no mammographic evidence of malignancy. A 1 year screening mammogram is recommended. This exam was interpreted at Station ID: [id number]. NOTE: For mammograms, a report in lay terms will be sent to the patient. Approximately 15% of breast malignancies will not be visualized mammographically. In the management of a palpable breast mass, a negative mammogram must not discourage biopsy of a clinically suspicious lesion. Electronically Signed By: Clarke hernandez/hieu:06/25/2019 10:29:02 copy to: Annia Funes letter sent: Normal Exam ACR BI-RADS Category 1: Negative [id number]
== END ==
PROVIDERS: PCP Family Medicine; Referring Provider Family Medicine; Visit Provider Family Medicine
DX: Z12.31 Encounter for screening mammogram for malignant neoplasm of breast (principal)
CPT/HCPCS: 77063; 77067

== ENCOUNTER → 2019-12-01 09:21 | Outpatient (CLI) | payer OTHER, SELFPAY ==
[2019-12-01 10:20] LABS: Add Manual Diff / Slide Review NO; Basophils Absolute Auto 100 /uL (0-100); Basophils Percent Auto 0.8 % (0-2); Eosinophils Absolute Auto 100 /uL (0-450); Eosinophils Percent Auto 1.9 % (2-4); Hematocrit 40.1 % (36-46); Hemoglobin 13.3 g/dL (12.0-16.0); Lymphocytes Absolute Auto 1900 /uL (1100-4500); Lymphocytes Percent Auto 29.4 % (25-40); Mean Corpuscular HGB Conc 33.2 % (30-36); Mean Corpuscular Hemoglobin 30.2 PG (26-34); Monocytes Absolute Auto 400 /uL (0-900); Monocytes Percent Auto 6.7 % (3-14); Neutrophils Absolute Auto 3900 /uL (1500-7000); Neutrophils Percent Auto 61.2 % (50-75); Platelet Count 262 X10^3/uL (150-400); Red Cell Distribution Width 13.5 % (11.6-14.8); White Blood Cell Count 6.4 X10^3/uL (4.5-11.0)
[2019-12-01 10:44] LABS: BUN Creatinine Ratio 23.2 (6-22); Blood Urea Nitrogen 19 mg/dL (7-17); Calcium 9.6 mg/dL (8.4-10.2); Carbon Dioxide 31 mmol/L (22-32); Chloride 103 mmol/L (98-107); Cholesterol 249 mg/dL (140-199); Estimated Glomerular Filt Rate > 60.0 mL/min (>60); Glucose 85 mg/dL (70-100); HDL Cholesterol 51 mg/dL (40-60); HEMOLYSIS < 15 (0-50); LDL Cholesterol Calculated 164 mg/dL (<100); Magnesium 2.1 mg/dL (1.6-2.3); Potassium 4.5 mmol/L (3.4-5.1); Sodium 138 mmol/L (137-145); Triglycerides 171 mg/dL (35-150)
== END ==
PROVIDERS: PCP Family Medicine; Referring Provider Family Medicine; Visit Provider Internal Medicine Cardiovascular Disease
DX: E78.5 Hyperlipidemia, unspecified (principal); I49.3 Ventricular premature depolarization; I10 Essential (primary) hypertension
CPT/HCPCS: 36415; 80048; 80061; 83735; 85025

== ENCOUNTER → 2020-01-13 | Outpatient (CLI) | payer OTHER, SELFPAY | PROVIDERS: PCP Family Medicine; Referring Provider Internal Medicine; Visit Provider Internal Medicine | DX: Z23 Encounter for immunization (principal) | CPT/HCPCS: 90471; 90686 ==

== ENCOUNTER → 2020-01-23 13:39 | Outpatient (CLI) | payer OTHER, SELFPAY ==
[2020-01-24 23:56] LABS: COVID19 Sendout Not Detected (Not Detect)
== END ==
PROVIDERS: PCP Family Medicine; Visit Provider Physician Assistant
DX: Z01.812 Encounter for preprocedural laboratory examination (principal)
CPT/HCPCS: 87635

== ENCOUNTER 2020-02-14 08:24 | Emergency (ER) | payer OTHER, SELFPAY ==
[2020-02-14 08:36] VITALS: O2SAT 98
[2020-02-14 08:37] VITALS: BP 195/88; PULSE 64; O2SAT 98
[2020-02-14 08:39] VITALS: RESP 16; TEMP 36.9
--- NOTE | 2020-02-14 08:41 | ED_ITS ---
HPI - General Adult General Chief complaint: Abdominal Pain Stated complaint: stomach pain, started last night Time Seen by Provider: 02/14/20 08:36 Source: patient Mode of arrival: Ambulatory Limitations: no limitations History of Present Illness HPI narrative: Patient is a 59-year-old female here for evaluation approximately 12 hours of periumbilical abdominal pain. She states that a couple weeks ago she had a cough/bronchitis. She was tested for coronavirus which was negative. She states that after that she had some lower abdominal pain which seem to improve/resolve. Last evening at approximately 0800 hours in the evening she developed some periumbilical abdominal pain. No diarrhea, no urinary symptoms, no nausea vomiting. Has continued overnight. She states she did drink some alcohol yesterday. Have not tried anything for symptoms prior to arrival. Related Data Home Medications Medication Instructions Recorded Confirmed calcium carbonate 1 tab PO DAILY #0 tab 01/05/16 05/27/19 losartan 50 mg PO BEDTIME 05/08/19 05/27/19 metoprolol succinate 12.5 mg PO DAILY 05/08/19 05/27/19 trazodone 25 mg PO BEDTIME 05/08/19 05/27/19 Previous Rx's Medication Instructions Recorded ondansetron HCl [Zofran] 4 mg PO Q6H PRN #10 tab 05/08/19 ibuprofen 800 mg tablet 800 mg PO Q6-8H PRN #90 tab 05/29/19 Allergies Allergy/AdvReac Type Severity Reaction Status Date / Time morphine AdvReac Nausea Verified 02/14/20 09:09 NSAIDS (Non-Steroidal AdvReac Gastrointestinal Verified 02/14/20 09:10 Anti-Inflamma Upset Review of Systems Constitutional Constitutional: Denies fever(s) and Denies headache(s) ENT Ears, Nose, Mouth, and Throat: Denies headache(s) Cardiovascular Cardiovascular: Denies chest pain and Denies dyspnea Respiratory Respiratory: Denies dyspnea Gastrointestinal Gastrointestinal: Reports abdominal pain, Denies change in bowel habits, Denies constipation, Denies diarrhea, Denies nausea and Denies vomiting Genitourinary Genitourinary: Denies dysuria Genitourinary: Denies dysuria and Denies vaginal discharge Musculoskeletal Musculoskeletal: Denies arthralgias and Denies myalgias Integumentary/Breasts Skin/Breast: Denies rash Neurologic Neurologic: Denies behavioral changes and Denies headache(s) Psychiatric Psychiatric: Denies behavioral changes Hematologic/Lymphatic Hematologic/Lymphatic: Denies easy bleeding and Denies easy bruising Allergic/Immunologic Allergic/Immunologic: Denies urticaria Patient History Medical History (Updated 02/14/20 @ 11:21 by Jorge Luis Avila DO) Ankle fracture, lateral malleolus, closed (Inactive) Gastrocnemius muscle strain (Inactive) Hypertension (Acute) Surgical History Status post delivery Status post discectomy Family History Father Age: 92 Macular degeneration Hypertension Social History Smoking Status: Former smoker Smoking Status: Current every day smoker alcohol intake frequency: 0-2 drinks per day Substance Use Type: does not use Exam Initial Vital Signs Initial Vital Signs: Vital Signs Pulse Oximetry 98 02/14/20 08:36 Const General: cooperative and comfortable Limitations: mental status not altered HENMT Head: normal to inspection and normocephalic Resp Effort & Inspection: normal respiratory effort Auscultation: clear to auscultation bilaterally Cardio Rate: regular rate Rhythm: regular rhythm GI Inspection: non-distended Palpation: soft and No firm Other: Patient with the easily palpable masslike structure between the epigastric region in the umbilicus. At the very inferior portion of this is where she states that her tenderness is from. Skin Lesions: no lesions Rashes: no rashes Neuro General: patient alert and patient awake Speech: speech normal Extrem General: normal to inspection and capillary refill normal Psych Appearance: grossly normal and well kempt Scores GCS [place] coma scale eye opening: Spontaneous Will coma scale verbal response: Orientated Will coma scale motor response: Obey commands [place] coma scale total score: 15 Course Orders Ordered: ED Orders 02/14/20 08:42 CT abdomen pelvis w con Stat 02/14/20 09:16 Complete Blood Count MAN DIFF Stat Comprehensive Metabolic Panel Stat Lipase Stat 02/14/20 10:56 Consult to General Surgery Stat 02/14/20 11:18 COVID19 -ED/INPAT/OR/L&D Stat Discontinued Medications Sodium Chloride (Normal Saline 0.9%) 1,000 mls @ 1,000 mls/hr IV BOLUS ONE Stop: 02/14/20 09:40 Last Admin: 02/14/20 09:24 Dose: 1,000 mls/hr Documented by: MARIAELENA Vital Signs Vital signs: Vital Signs - 8 hr 02/14/20 08:36 02/14/20 08:37 02/14/20 08:39 Temperature 98.4 F Pulse Rate 64 Respiratory Rate 16 Blood Pressure 195/88 H Pulse Oximetry 98 98 02/14/20 09:00 02/14/20 09:16 Temperature 98.4 F Pulse Rate 65 64 Respiratory Rate 18 Blood Pressure 190/88 H 190/91 H Pulse Oximetry 97 98 Medical Decision Making Lab Data Lab results reviewed: Yes I reviewed the patient's lab results. Result diagrams: 02/14/20 09:16 02/14/20 09:16 Labs: Lab Results 02/14/20 02/14/20 Range/Units 09:16 09:16 WBC 6.8 (4.5-11.0) X10^3/uL RBC 4.42 (4.0-5.2) X10^6/uL Hgb 13.2 (12.0-16.0) g/dL Hct 39.9 (36-46) % MCV 90.3 (80-100) fL MCH 29.9 (26-34) PG MCHC 33.1 (30-36) % RDW 13.9 (11.6-14.8) % Plt Count 257 (150-400) X10^3/uL Total Counted 100 Seg Neutrophils % 46.0 (38-70) % Band Neutrophils % 10.0 H (3-7) % Lymphocytes % (Manual) 23.0 L (25-45) % Atypical Lymphs % 6.0 H ( - 0) % Monocytes % (Manual) 9.0 (2-11) % Eosinophils % (Manual) 5.0 H (2-4) % Basophils % (Manual) 1.0 (0-1) % Neutrophils # (Manual) 3808 (8730-7121) /uL RBC Morphology Normal morphology Sodium 137 (137-145) mmol/L Potassium 4.3 (3.4-5.1) mmol/L Chloride 105 (98-107) mmol/L Carbon Dioxide 27 (22-32) mmol/L BUN 13 (7-17) mg/dL Creatinine 0.67 (0.52-1.04) mg/dL Estimated GFR > 60.0 (>60) mL/min BUN/Creatinine Ratio 19.4 (6-22) Glucose 111 H (70-100) mg/dL Calcium 9.6 (8.4-10.2) mg/dL Total Bilirubin 0.6 (0.2-1.3) mg/dL AST 33 (14-36) IU/L ALT 25 (<35) IU/L Alkaline Phosphatase 96 (38-126) U/L Total Protein 7.8 (6.3-8.2) g/dL Albumin 4.5 (3.5-5.0) g/dL Globulin 3.3 (1.7-4.1) g/dL Albumin/Globulin Ratio 1.4 (1.0-2.8) Lipase 610 H (23-300) U/L Urine Dip Bedside Urine Glucose Negative Bedside Urine Bilirubin - Negative Bedside Urine Ketone - Negative Urine Specific [place] 1.020 Bedside Urine Occult Blood +/- Bedside Urine pH 6.0 Bedside Urine Protein - Negative Bedside Urine Urobilinogen - Negative Bedside Urine Nitrite - Negative Bedside Urine Leukocytes - Negative Esterase Point of care testing: Urine Dip Bedside Urine Glucose Negative Bedside Urine Bilirubin - Negative Bedside Urine Ketone - Negative Urine Specific [place] 1.020 Bedside Urine Occult Blood +/- Bedside Urine pH 6.0 Bedside Urine Protein - Negative Bedside Urine Urobilinogen - Negative Bedside Urine Nitrite - Negative Bedside Urine Leukocytes - Negative Esterase Imaging Data CT scan - abdomen/pelvis: Radiologist's Impression: [address] [address] [address] Scan Report Signed Patient: Neel Marcelino [facility]#: [id number] : 2Acct:[id number] Age/Sex: 59 / FDate of Service: 02/14/20 Loc: ED Accession Number: [id number] Procedure: CT abdomen pelvis w con Ordering Provider: Jorge Luis Avila D.O. PROCEDURE: CT ABDOMEN PELVIS W CON INDICATIONS: Periumbilical abdominal pain TECHNIQUE: After the administration of intravenous contrast, 5 mm thick sections acquired from the diaphragm to the symphysis. 5 mm coronal and sagittal reformats were acquired. For radiation dose reduction, the following was used: automated exposure control, adjustment of mA and/or kV according to patient size. COMPARISON: None. FINDINGS: Image quality: Excellent. ABDOMEN: Lung bases: Lung bases are clear. Heart size is normal. Solid organs: Liver is normal in size and enhancement. 9 mm left hepatic lobe hypodensity is too small to accurately characterize but likely represents a cyst versus hemangioma (image 13, series 2). Gallbladder is unremarkable . Biliary system is non dilated. Pancreas enhances normally. Spleen is normal in size and enhancement. No adrenal nodules. Kidneys demonstrate normal size and enhancement, without hydronephrosis. Peritoneum and bowel: Bowel loops demonstrate normal wall thickness and ca liber. No free fluid or air. Nodes and vessels: No retroperitoneal or mesenteric adenopathy by size criteria. Aorta and inferior vena cava are normal in size. Miscellaneous: There is a fat containing umbilical hernia with mild inflammatory stranding near the its deeper margins, immediately adjacent to traversing segment of transverse colon. Neck of the hernia measures approximately 2.2 cm in diameter (image 37 series 2). PELVIS: Genitourinary: Bladder wall thickness is normal. Miscellaneous: No inguinal hernias or adenopathy. Bones: No suspicious bony lesions. No vertebral body compression fractures. IMPRESSION: 1. Fat containing umbilical hernia with mild inflammatory stranding involving its deeper margins, abutting the adjacent segment of transverse colon. No evidence for obstruction. No bowel wall thickening. No fluid collections. 2. 9 mm left hepatic lobe hypodensity is incompletely characterized but likely represents a cyst versus hemangioma. Dictated by: Clarke Lester M.D. on 02/14/2020 at 9:23 Approved by: Clarke Lester M.D. on 02/14/2020 at 9:30 MDM Narrative Medical decision making narrative: Lipase was slightly elevated however low suspicion for pancreatitis. She does have an umbilical hernia on her CT scan. Was evaluated by General surgery here in the emergency department. No signs of strangulation. COVID swab ordered secondary to surgery that will be scheduled the beginning of next week for this umbilical hernia. Patient was given return precautions. She expressed understanding and agreement. Discharge Plan Departure Patient Disposition: Home Clinical Impression: Umbilical hernia Qualifiers: Obstruction and gangrene presence: without obstruction or gangrene Qualified Code(s): K42.9 - Umbilical hernia without obstruction or gangrene Abdominal pain Qualifiers: Abdominal location: periumbilical Qualified Code(s): R10.33 - Periumbilical pain Activity Restrictions/Additional Instructions: Recommend you follow all instructions given to by General surgery. A coronavirus test was obtained today in preparation for this. Contact her primary provider for follow-up. Return to the emergency department for any new or worsening symptoms. Prescriptions: No Action calcium carbonate 500 MG tablet 1 tab PO DAILY Qty: 0 RF: 0 ibuprofen 800 mg tablet 800 mg PO Q6-8H PRN (Reason: pain) Qty: 90 RF: 0 losartan 50 mg Tablet 50 mg PO BEDTIME RF: 0 trazodone 50 mg Tablet 25 mg PO BEDTIME RF: 0 metoprolol succinate 25 mg Tablet Extended Release 24 Hr 12.5 mg PO DAILY RF: 0 ondansetron HCl [Zofran] 4 mg tablet 4 mg PO Q6H PRN (Reason: nausea and vomiting) Qty: 10 RF: 0 Referrals: Cynthia Joseph MD [Primary Care Provider] -
[2020-02-14 09:00] VITALS: BP 190/88; BP 195/88; PULSE 65; PULSE 73; RESP 18; TEMP 36.9; O2SAT 97; O2SAT 99; BMI 26.1
[2020-02-14 09:16] VITALS: BP 190/91; PULSE 64; O2SAT 98
[2020-02-14 09:23] LABS: Hematocrit 39.9 % (36-46); Hemoglobin 13.2 g/dL (12.0-16.0); Mean Corpuscular HGB Conc 33.1 % (30-36); Mean Corpuscular Hemoglobin 29.9 PG (26-34); Mean Corpuscular Volume 90.3 fL (80-100); Platelet Count 257 X10^3/uL (150-400); Red Blood Cell Count 4.42 X10^6/uL (4.0-5.2); Red Cell Distribution Width 13.9 % (11.6-14.8); White Blood Cell Count 6.8 X10^3/uL (4.5-11.0)
[2020-02-14] MEDS: SODIUM CHLORIDE 0.9% 1,000 ML 1000 ML IV (09:24)
[2020-02-14 09:38] LABS: Alanine Aminotransferase 25 IU/L (<35); Albumin 4.5 g/dL (3.5-5.0); Albumin Globulin Ratio 1.4 (1.0-2.8); Alkaline Phosphatase 96 U/L (38-126); Aspartate Aminotransferase 33 IU/L (14-36); BUN Creatinine Ratio 19.4 (6-22); Bilirubin Total 0.6 mg/dL (0.2-1.3); Blood Urea Nitrogen 13 mg/dL (7-17); Calcium 9.6 mg/dL (8.4-10.2); Carbon Dioxide 27 mmol/L (22-32); Chloride 105 mmol/L (98-107); Estimated Glomerular Filt Rate > 60.0 mL/min (>60); Globulin 3.3 g/dL (1.7-4.1); Glucose 111 mg/dL (70-100); HEMOLYSIS < 15 (0-50); Lipase 610 U/L (23-300); Potassium 4.3 mmol/L (3.4-5.1); Sodium 137 mmol/L (137-145); Total Protein 7.8 g/dL (6.3-8.2)
[2020-02-14 10:15] LABS: Neutrophils Absolute Manual 3808 /uL (3000-5900); RBC Morphology Normal Morphology; Total Cells Counted 100
[2020-02-14 11:32] VITALS: PULSE 64; RESP 14; O2SAT 99
[2020-02-14 11:36] LABS: COVID19 -Nasal RAPID Negative (Negative)
--- NOTE | 2020-02-16 14:51 | PM.HP.1 ---
History of Present Illness History of Present Illness Date Patient Seen: 02/14/20 Chief complaint: stomach pain, started last night Narrative: 59-year-old woman seen in the emergency room in consultation for abdominal pain. Last night she developed periumbilical pain she presented to the emergency room underwent workup including CT abdomen and pelvis which demonstrates a fat containing umbilical hernia. There was no evidence of intestinal involvement. No nausea vomiting fever. Prior abdominal surgery includes section via vertical incision. No prior hernia surgery. Patient History Medical History Ankle fracture, lateral malleolus, closed (Inactive) Gastrocnemius muscle strain (Inactive) Hypertension (Acute) Surgical History Status post delivery Status post discectomy Family & Social History Family History Father Age: 92 Macular degeneration Hypertension Safety & Behavioral: Feels Safe in Current Yes Environment Been Physically Hurt or No Threatened By a Person Tobacco & Substance use: Smoking Status Former smoker alcohol intake frequency 0-2 drinks per day Substance Use Type does not use Meds Home Medications and Allergies Home Medications Medication Instructions Recorded Confirmed Type calcium carbonate 1 tab PO DAILY #0 tab 01/05/16 05/27/19 History losartan 50 mg PO BEDTIME 05/08/19 05/27/19 History metoprolol succinate 12.5 mg PO DAILY 05/08/19 05/27/19 History ondansetron HCl [Zofran] 4 mg PO Q6H PRN #10 tab 05/08/19 05/27/19 Rx trazodone 25 mg PO BEDTIME 05/08/19 05/27/19 History ibuprofen 800 mg tablet 800 mg PO Q6-8H PRN #90 tab 05/29/19 Rx hydrocodone-acetaminophen [Benson] 1 tab PO Q4-6H PRN #10 tab 02/14/20 Rx Allergies Allergy/AdvReac Type Severity Reaction Status Date / Time morphine AdvReac Nausea Verified 02/14/20 09:09 NSAIDS (Non-Steroidal AdvReac Gastrointestinal Verified 02/14/20 09:10 Anti-Inflamma Upset Review of Systems Review of Systems Narrative: A 10 point review of systems is negative except as noted in the HPI Exam Vital Signs (past 8 hours): Oxygen Delivery Method Room Air Narrative Exam Narrative: General-no acute distress, well nourished adult woman HEENT-moist mucous membranes, no scleral icterus Neck-supple, no lymphadenopathy Chest- non labored respirations, clear to auscultation bilaterally Cardiac-regular rate no peripheral edema Abdomen-soft, minimally tender periumbilical hernia. Partially reducible Extremities-warm, well perfused Neurological-alert and oriented, no focal deficits Objective Labs Result Diagrams: 02/14/20 09:16 02/14/20 09:16 Assessment & Plan Assessment & Plan narrative: 59-year-old woman with a symptomatic periumbilical hernia. Laboratory studies and imaging were reviewed. Fat containing hernia no intestinal involvement. I told her that it would be reasonable to repair the hernia electively. I recommended that we proceed with an open umbilical hernia repair likely with mesh. Technical details were discussed. Operative risks including bleeding, infection, reoccurence, pain damage to surrounding structures were discussed. Questions have been answered and she is in agreement with this plan.
== END 2020-02-14 11:33 | disposition home or self-care (01) ==
PROVIDERS: Emergency Provider Emergency Medicine; PCP Family Medicine
DX: K42.9 Umbilical hernia without obstruction or gangrene (principal); R10.33 Periumbilical pain; R05 Cough
CPT/HCPCS: 36415; 74177; 80053; 81003; 83690; 85025; 87635; 96360; 96361; 99284; Q9967

== ENCOUNTER 2020-02-17 12:45 | Day surgery (SDC) | payer OTHER, SELFPAY ==
[2020-02-17] VITALS (12 sets, daily range): BP systolic 136–178; BP diastolic 73–90; PULSE 60–71; RESP 12–18; TEMP 36–36.6; O2SAT 94–100; BMI 26.1
[2020-02-17] MEDS: LACTATED RINGERS 1,000 ML 100 ML IV (14:14)
--- NOTE | 2020-02-17 15:23 | PM.PREOP ---
Pre-operative Note COVID-19 COVID-19 status: Negative Interval Note History & Physical reviewed/Exam performed by Physician: Yes Changes to H&P: No
[2020-02-17] MEDS: MIDAZOLAM 2 MG/2 ML VIAL IV (15:30)
[2020-02-17] MEDS: CEFAZOLIN 2 GM/100 ML FROZ.PIGGY IV (15:46)
--- NOTE | 2020-02-17 15:51 | SUR.OPER ---
Supine on padded OR bed, head on pillow, arms secured on padded arm boards at <90 degrees abduction, legs uncrossed, safety belt at thigh, tape over blanket over lower legs.
[2020-02-17] MEDS: BUPIVACAINE LIPOSOME 266 MG/20 ML VIAL INJ (15:56)
[2020-02-17] MEDS: BUPIVACAINE 0.25% (PF) VIAL 30 ML INJ (15:57)
--- NOTE | 2020-02-17 17:04 | PM.OP.1 ---
Operative Date/Time/Diagnoses Date of procedure: 02/17/20 Time of procedure: 17:04 Pre-op diagnosis: ventral hernia Post-op diagnosis: same Procedure & Clinicians Procedure: open ventral hernia repair Same procedure as scheduled: Yes Indications: 59F with a symptomatic ventral hernia here for elective repair Surgeon: Fer Osuna Anesthesia Type: General Operative Notes Findings: Omentum within a 4 cm ventral fascial defect superior to the umbilicus. Specimen(s): none sent Estimated Blood Loss (mL): 20 Procedure in detail: Patient was brought to the operating room placed supine on the table. Bilateral lower extremity compression devices were applied. General anesthesia was induced and they were intubated with an endotracheal tube. They received 2 g of Ancef prior to skin incision. They were prepped and draped in sterile fashion. A time-out was performed. A midline incision was made superior to the umbilicus. The subcutaneous tissues were divided. The ventral fascial defect was approximately 4 cm in maximal diameter and 2 cm above the umbilicus. And the hernia sac was dissected off the surrounding fascial defect.. The hernia sac contained incarcerated but viable omentum. Using blunt dissection I carefully carefully freed the hernia sac from beneath the fascia defect in order to accomodate the mesh. The fascia defect was 4 cm in maximal diameter. A Bard Ventralex ST hernia patch 8 cm was inserted beneath the fascia defect and above the peritoneum in a sublay position. The mesh was anchored in the fascia was reapproximated using interrupted Ethibond. The subcutaneous tissues were reapproximated using 3 0 Vicry,l skin closed with 4 0 Monocryl followed by the application of Dermabond and Steri-Strips. Sponge instrument count at the end of the operation was correct. Patient tolerated procedure well was extubated and transferred to postoperative care unit in stable condition. Complications: none Post-operative Condition: stable Disposition: same day surgery
[2020-02-17] MEDS: HYDROMORPHONE 2 MG INJ IV ×2 (17:30→17:35)
[2020-02-17] MEDS: OXYCODONE/ACETAMINOPHEN 5/325 TABLET 1 TAB PO (17:37)
== END 2020-02-17 18:30 | disposition home or self-care (01) ==
PROVIDERS: PCP Family Medicine; Referring Provider Family Medicine; Visit Provider Surgery
PROC: (CPT 49561; principal; 2020-02-17 14:15)
DX: K43.6 Other and unspecified ventral hernia with obstruction, without gangrene (principal); I10 Essential (primary) hypertension
CPT/HCPCS: 49561; 49568; C1781; C9290; J0690; J1100; J1170; J1885; J2250; J2405; J2704; J3010

== ENCOUNTER → 2020-07-02 10:49 | Outpatient (CLI) | payer OTHER, SELFPAY ==
--- NOTE | 2020-07-02 | DI.MG.S_ITS ---
BILATERAL DIGITAL SCREENING MAMMOGRAM 3D/2D WITH CAD: 07/02/2020 CLINICAL: Routine screening. Comparison is made to exams dated: 06/25/2019 mammogram, 05/17/2018 mammogram, and 05/08/2017 mammogram - [facility]. The tissue of both breasts is heterogeneously dense. This may lower the sensitivity of mammography. Current study was also evaluated with a Computer Aided Detection (CAD) system. No significant masses, calcifications, or other findings are seen in either breast. There has been no significant interval change. IMPRESSION: NEGATIVE There is no mammographic evidence of malignancy. A 1 year screening mammogram is recommended. This exam was interpreted at Station ID: [id number]. NOTE: For mammograms, a report in lay terms will be sent to the patient. Approximately 15% of breast malignancies will not be visualized mammographically. In the management of a palpable breast mass, a negative mammogram must not discourage biopsy of a clinically suspicious lesion. Electronically Signed By: Raymon perry/hieu:07/02/2020 11:07:18 copy to: Annia Funes letter sent: Normal Exam ACR BI-RADS Category 1: Negative [id number]
== END ==
PROVIDERS: PCP Family Medicine; Referring Provider Family Medicine; Visit Provider Family Medicine
DX: Z12.31 Encounter for screening mammogram for malignant neoplasm of breast (principal)
CPT/HCPCS: 77063; 77067

== ENCOUNTER → 2020-07-27 15:20 | Outpatient (CLI) | payer OTHER, SELFPAY ==
--- NOTE | 2020-07-27 15:24 | DI.RAD.S_ITS ---
PROCEDURE: XR LUMBAR SPINE 2-3V INDICATIONS: LOW BACK PAIN TECHNIQUE: 3 views of the lumbar spine were acquired. COMPARISON: None. FINDINGS: Convex left thoracolumbar scoliosis noted. There are 6 lumbar type vertebral bodies and a transitional sacral element which is partially lumbar lysed. Normal bone mineralization present. Disc space narrowing present at L3-4, L4-5 and L5-S1. Hypertrophic degenerative facet joints present at<< L3-4, L4-5 and L5-S1.> IMPRESSION: Multilevel degenerative disc disease and arthropathy without evidence of fracture or malalignment. Thoracolumbar dextroscoliosis Dictated by: Devang Luis M.D. on 07/27/2020 at 16:02 Approved by: Devang Luis M.D. on 07/27/2020 at 16:04
== END ==
PROVIDERS: PCP Family Medicine; Referring Provider Family Medicine; Visit Provider Family Medicine
DX: M54.5 Low back pain (principal); M51.36 Other intervertebral disc degeneration, lumbar region; M51.37 Other intervertebral disc degeneration, lumbosacral region; M47.816 Spondylosis without myelopathy or radiculopathy, lumbar region; M47.817 Spondylosis without myelopathy or radiculopathy, lumbosacral region; M41.85 Other forms of scoliosis, thoracolumbar region
CPT/HCPCS: 72100

== ENCOUNTER → 2020-09-05 08:32 | Outpatient (CLI) | payer OTHER, SELFPAY ==
--- NOTE | 2020-09-05 08:34 | DI.MRI.S_ITS ---
PROCEDURE: MR LUMBAR SPINE WO CON INDICATIONS: Low back pain TECHNIQUE: Noncontrast sagittal T1 spin echo and T2 fast echo, sagittal STIR, axial T1 and T2 fast spin echo through the lumbar spine. In cases with scoliosis, additional coronal T2 fast spin echo may be performed. COMPARISON: [facility], CR, XR LUMBAR SPINE 2-3V, 07/27/2020, 15:22. FINDINGS: Image quality: Excellent. Alignment and Curvature: Mild dextroconvex scoliotic curvature is seen. No focal AP alignment abnormality is seen. Bone Marrow: Marrow is of normal overall signal. No acute vertebral body compression fractures. Spinal Cord: Conus medullaris terminates at the T12 level. Visualized cord demonstrates normal signal and size. Paraspinous Soft Tissues: No paravertebral masses. T12-L1: Skxx-nd-[id number] loss of disc height and disc signal can be seen. No significant neural foraminal or central canal narrowing can be seen. L1-L2: There is tdeo-ev-[id number] loss of disc height and disc signal. Minimal to mild disc bulge is seen. No significant neural foraminal or central canal narrowing can be seen. L2-L3: Normal appearance. L3-L4: Normal appearance. L4-L5: At least moderate loss of disc height and disc signal can be seen. Reactive marrow endplate changes are seen, which are hyperintense on T1-weighted and T2-weighted imaging and most consistent with fatty metaplasia (Modic type II changes). Moderate disc bulge is seen, with a central disc protrusion. Mild facet joint hypertrophy is seen. No significant neural foraminal narrowing can be seen. Moderate central canal narrowing is seen. L5-S1: Mild loss of disc height is seen. Loss of disc signal is seen. Mild generalized disc bulge is seen. No neural foraminal narrowing can be seen. At least moderate central canal narrowing is seen, which is largely caused by epidural lipomatosis. IMPRESSION: Lumbar spine degenerative changes are seen, which are worst at the L4-L5 level. Dictated by: Bola Lira M.D. on 09/07/2020 at 9:07 Approved by: Bola Lira M.D. on 09/07/2020 at 9:11
== END ==
PROVIDERS: PCP Family Medicine; Referring Provider Family Medicine; Visit Provider Family Medicine
DX: M54.5 Low back pain (principal)
CPT/HCPCS: 72148

== ENCOUNTER → 2021-04-18 09:43 | Outpatient (CLI) | payer OTHER, SELFPAY ==
[2021-04-18 11:36] LABS: COVID19 -Nasal RAPID Negative (Negative)
== END ==
PROVIDERS: PCP Family Medicine; Visit Provider Physical Medicine & Rehabilitation
DX: Z20.822 Contact with and (suspected) exposure to COVID-19 (principal)
CPT/HCPCS: 87635; C9803

== ENCOUNTER 2021-04-19 14:38 | Outpatient (CLI) | payer OTHER, SELFPAY ==
[2021-04-19] VITALS (8 sets, daily range): BP systolic 121–181; BP diastolic 60–94; PULSE 69–82; RESP 14–20; TEMP 36.3; O2SAT 96–100
--- NOTE | 2021-04-19 14:40 | DI.RAD.S_ITS ---
PROCEDURE: PAIN L/S TRANSFORAMINAL INJECT INDICATIONS: SPONDYLOSIS COMPARISON: None. FINDINGS: Fluoroscopic spot filming was performed to verify placement of spinal needles at the lower lumbar level(s), as labeled on the films. Appropriate location(s) of the needle tip(s) was confirmed by injection of iodinated contrast. IMPRESSION: Needle placement at the lower lumbar level. Dictated by: Derick Aponte M.D. on 04/19/2021 at 16:48 Approved by: Derick Aponte M.D. on 04/19/2021 at 16:48
[2021-04-19] MEDS: fentaNYL 100 MCG/2 ML INJ 50 MCG IV (15:05)
[2021-04-19] MEDS: BUPIVACAINE 0.25% (PF) VIAL 2 ML INJ (15:05)
[2021-04-19] MEDS: MIDAZOLAM 5 MG/5 ML VIAL IV (15:05)
[2021-04-19] MEDS: IOPAMIDOL 15 ML VIAL 3 ML INJ (15:08)
[2021-04-19] MEDS: BETAMETHASONE 30 MG/5 ML MDV 6 MG INJ (15:09)
[2021-04-19] MEDS: DEXAMETHASONE 10 MG/ML VIAL 20 MG INJ (15:09)
--- NOTE | 2021-04-19 15:17 | P.PCN_ITS ---
Date/Time/Diagnoses Date of procedure: 04/19/21 Time of procedure: 15:17 Pre-procedure diagnosis: 1. FORAMINAL STENOSIS WITH LE SYMPTOMS Post-procedure diagnosis: same Procedure Notes Procedure: 1. FLUOROSCOPICALLY GUIDED CONTRAST CONTROLLED TRANSFORAMINAL EPIDURAL STEROID INJECTION - LEFT L4/5 Indications: Neel Tafoya is referred by Dr. Joseph for treatment of HNP with Left LE Symptoms Physician: David Thompson Total Fluoroscopy time (seconds): 8 Total sedation minutes: 9 Complications: none Procedure in detail & Post-procedure care: FINDINGS Foraminal Nerve Root Compression secondary to disc disease and facet hypertrophy DESCRIPTION OF PROCEDURE Following review of allergy and review of potential side effects and complications, including, but not necessarily limited to, infection, allergic reaction, local tissue breakdown, stroke, temporary or permanent nerve injury, paralysis, and possible , the patient indicated that the patient understood and agreed to proceed. An informed consent document was signed by the patient, witnessed by a nurse, and placed in the patient's chart. Additionally, other treatment options including medications, modalities, and physical therapy were reviewed with the patient. After review of previous anaesthesic history and IV conscious sedation the patient was deemed safe to proceed with today?s procedure with IV conscious sedation as ASA class II designation. Safety time-out was performed to confirm patient ID, procedure to be performed and site of procedure. IV sedation was accomplished with a combination of 2mg of Versed and 50mcg of Fentanyl administered by the RN after DO order, titrated to patient comfort during the course of the procedure while the patient remained responsive to all verbal commands In the prone position following sterile prep and drape of the lumbar region, the left L4/5 posterior neuroforamen was identified fluoroscopically. The skin was anesthetized via a 25-gauge 1.5-inch needle with 1% lidocaine solution. At this point, a 25-gauge 3.5-inch spinal needle was atraumatically introduced and advanced under fluoroscopic guidance through the posterior left L4/5 neuroforamen to approximately the anterior aspect of the canal. Depth was confirmed on lateral view. Following negative aspiration, injection of approximately 1.5 cc of Isovue 200 under live fluoroscopy in the AP view confirmed excellent flow along the nerve root, into the epidural space without vascular or intrathecal uptake observed Radiological data, including multiple fluoroscopic views of the lumbosacral spine, reveal a spinal needle at the left L4/5 posterior neuroforamen. Subsequent views show flow of contrast material flowing superiorly and inferiorly along the nerve root confirming epidural flow. Subsequently, a test dose of 1.5 cc of 1% lidocaine solution was administered and patient was observed for two minutes for signs or symptoms of complications, including abdominal pain, shortness of breath, bilateral upper or lower extremity weakness, nausea and vomiting, prior to steroid injection. At this point, a total of 3cc or 20mg of dexamethasone and 6mg of betamethasone was injected without incident. The procedure tolerated the procedure well without signs or symptoms of complications prior to transfer to the recovery area continued monitoring without incident. The patient was then transferred to the recovery area where they were observed for an appropriate time after the injection. The patient reported a VAS score of 7 prior to the procedure and a post- procedure VAS of 0. POST OP INSTRUCTIONS The patient was provided a Pain Log to continue to record their response to the target-specific procedure prior to follow-up visit with their referring physi diann. Additionally, specific post-injection care instructions and a contact number to our office were provided if concerns arise regarding possible complications associated with the procedure are suspected.
== END 2021-04-19 15:41 | disposition home or self-care (01) ==
LOC: RAD 14:40
PROVIDERS: PCP Family Medicine; Referring Provider Physical Medicine & Rehabilitation; Visit Provider Physical Medicine & Rehabilitation
DX: M48.061 Spinal stenosis, lumbar region without neurogenic claudication (principal); M51.16 Intervertebral disc disorders with radiculopathy, lumbar region
CPT/HCPCS: 64483; J0702; J1100; J2250; J3010

== ENCOUNTER → 2021-04-26 14:31 | Outpatient (CLI) | payer OTHER, SELFPAY ==
--- NOTE | 2021-04-26 14:32 | DI.US.S_ITS ---
PROCEDURE: US RENAL COMPLETE INDICATIONS: ACUTE KIDNEY FAILURE TECHNIQUE: Real-time scanning was performed of the kidneys and bladder, with image documentation. COMPARISON: None. FINDINGS: Kidneys: Kidneys are normal in size. Right kidney measures 9.9 cm long; left kidney measures 10.2 cm long. Right renal cortical thickness is 1.4 cm; left renal cortical thickness is 1.3 cm. Renal cortical echotexture is normal. No hydronephrosis or nephrolithiasis. No suspicious solid mass lesions. Bladder: Pre-void bladder volume is 23 mL. Post-void residual is not measured images demonstrate no intraluminal masses or stones. On pre-void images, bilateral ureteral jets are noted with color Doppler interrogation. (Of note, ureteral jets may not be detectable in up to 25% of cases due to insufficient differences in specific gravity between ureteral and bladder urine). Miscellaneous: No free pelvic fluid. Mild increased hepatic echogenicity is present. IMPRESSION: No renal obstruction. Mild hepatic steatosis. Dictated by: Laura Mar M.D. on 04/26/2021 at 17:54 Approved by: Laura Mar M.D. on 04/26/2021 at 17:55
== END ==
PROVIDERS: PCP Family Medicine; Referring Provider Family Medicine; Visit Provider Family Medicine
DX: N17.9 Acute kidney failure, unspecified (principal); K76.0 Fatty (change of) liver, not elsewhere classified
CPT/HCPCS: 76770

== ENCOUNTER → 2021-05-16 11:13 | Outpatient (CLI) | payer OTHER, SELFPAY ==
--- NOTE | 2021-05-16 11:15 | DI.RAD.S_ITS ---
PROCEDURE: XR HIP W PEL IF DONE BATOOL MIN 4V INDICATIONS: BILATERAL HIP PAIN TECHNIQUE: AP pelvis with lateral view(s) of the bilateral hip(s). COMPARISON: None. FINDINGS: Bones: No fractures or dislocations. Pelvic ring appears intact. No suspicious bony lesions. Mild joint space narrowing and periarticular osteophyte formation at the bilateral hip joints. Soft tissues: The visualized bowel gas pattern is normal. No suspicious soft tissue calcifications. IMPRESSION: Bilateral hip osteoarthritis. No acute fracture. No osseous lesion. If symptoms and/or clinical suspicion for pathology persist, further assessment with repeat, or advanced imaging (e.g., CT, MRI, or bone scan) may be helpful for further assessment. Dictated by: Derick Aponte M.D. on 05/16/2021 at 13:26 Approved by: Derick Aponte M.D. on 05/16/2021 at 13:26
== END ==
PROVIDERS: PCP Family Medicine; Referring Provider Family Medicine; Visit Provider Family Medicine
DX: M16.0 Bilateral primary osteoarthritis of hip (principal); M25.551 Pain in right hip; M25.552 Pain in left hip
CPT/HCPCS: 73522